=== PATIENT | female | born 1975 | race Caucasian/White ===

== ENCOUNTER 2022-07-10 05:31 | Outpatient (CLI) | payer OTHER ==
[~2022-07-10] VITALS: Ht 180.3 cm; Wt 167.3 kg
[2022-07-11] MEDS ORDERED: METF-846 PO (11:05)
[2022-07-11] MEDS ORDERED: ERGO1250 PO (11:05)
[2022-07-11] MEDS ORDERED: OMEP40CA6 PO (11:05)
[2022-07-11] MEDS ORDERED: ASPI-808 PO (11:05)
[2022-07-11] MEDS ORDERED: MAGN400C PO (11:05)
[2022-07-11] MEDS ORDERED: ALBU18HF2 INH (11:05)
[2022-07-11] MEDS ORDERED: ATEN50TA PO (11:05)
[2022-07-11] MEDS ORDERED: CALC-308 PO (11:05)
[2022-07-11] MEDS ORDERED: HYDR12.56 PO (11:05)
== END 2022-07-11 13:29 | disposition home or self-care (01) ==
LOC: PREOP 05:31
PROVIDERS: ATTEND Obstetrics & Gynecology
DX: Z01.818 Encounter for other preprocedural examination (principal)

== ENCOUNTER 2022-07-17 08:27 | Day surgery (SDC) | payer OTHER ==
[2022-07-17] VITALS (11 sets, daily range): BP systolic 107–139; BP diastolic 59–91
[~2022-07-17] VITALS: Ht 180 cm; Wt 167.3 kg
[~2022-07-17 08:27] MED LIST: ALBU18HF2 INH; ASPI-808 PO; ATEN50TA PO; CALC-308 PO; ERGO1250 PO; HYDR12.56 PO; MAGN400C PO; METF-846 PO; OMEP40CA6 PO
[2022-07-17] MEDS ORDERED: metroNIDAZOLE 500MG/100ML IVPB 100 ML IV ONE (09:00)
[2022-07-17] MEDS ORDERED: ceFAZolin INJECTION 2,000 MG in NS (IVPB) 50 ML IV ONE (09:00)
[2022-07-17 09:44] LABS: BASOPHILS % (AUTO) 0 % (0-10); EOSINOPHILS # (AUTO) 0.3 10^3/uL (0.0-0.3); EOSINOPHILS % (AUTO) 4 % (0-10); HEMATOCRIT 38 % (35-52); HEMOGLOBIN 12.7 g/dL (11.5-16.0); LYMPHOCYTES # (AUTO) 2.6 10^3/uL (1.0-4.0); LYMPHOCYTES % (AUTO) 35 % (12-44); MEAN CORPUSCULAR HEMOGLOBIN 31 pg (25-34); MEAN CORPUSCULAR HGB CONC 33 g/dL (32-36); MEAN CORPUSCULAR VOLUME 92 fL (80-99); MEAN PLATELET VOLUME 10.4 fL (9.0-12.2); MONOCYTES # (AUTO) 0.6 10^3/uL (0.0-1.0); MONOCYTES % (AUTO) 7 % (0-12); NEUTROPHILS % (AUTO) 54 % (42-75); PLATELET COUNT 181 10^3/uL (130-400); WHITE BLOOD COUNT 7.4 10^3/uL (4.3-11.0)
[2022-07-17] MEDS ORDERED: ANTACID SUSP 30 ML UDC (MYLANTA) PO PRN (09:45)
[2022-07-17] MEDS ORDERED: SIMETHICONE 80 MG (MYLICON) CHEW PO PRN (09:45)
[2022-07-17] MEDS ORDERED: CEPACOL SORE THROAT-COUGH LOZENGE MM PRN (09:45)
[2022-07-17] MEDS ORDERED: ONDANSETRON 4 MG/2 ML (SDV) Z0FRAN IV PRN (09:45)
[2022-07-17] MEDS ORDERED: ZOLPIDEM 5 MG (AMBIEN) TAB PO PRN (09:45)
[2022-07-17] MEDS ORDERED: IBUPROFEN 600 MG (MOTRIN) TAB PO PRN (09:45)
--- NOTE | 2022-07-17 09:45 | Progress Note-Pre Operative ---
Pre-Operative Progress Note Date of Available H&P: Jul 17, 2022 Date H&P Reviewed: Jul 17, 2022 Time H&P Reviewed: 09:45 History & Physical: H&P Reviewed, Patient Examed, No changes noted Pre-Operative Diagnosis: AUB, Menorrhagia, Fibroid uterus, BMI 50, Chronic b lood loss anemia DANA PAULINO DO Jul 17, 2022 09:45
--- NOTE | 2022-07-17 09:49 | Discharge Inst-Women's Service ---
Discharge Inst-Women's Serv Depart Medication/Instructions New, Converted or Re-Newed RX: Transmitted to Pharmacy Problems Reviewed?: Yes Consults/Follow Up Additional Follow Up: Yes Orders/Referrals Dr. Christy in 7-10 days and in 8 weeks Activity Activity: Activity as Tolerated Driving Instructions: No Driving for 1 Week NO SMOKING: NO SMOKING Nothing Inside Vagina: No Douching, No [place], No Tampons Diet Discharge Diet: No Restrictions Symptoms to Report to : Bleeding Excessive, Pain Increased, Fever Over 101 Degrees F, Vaginal Bleeding Increase, Questions/Concerns For Any Problems or Questions: Contact Your Physician Skin/Wound Care Infection Signs and Symptoms: Increased Redness, Foul Odor of Wound, Increased Drainage, Skin Itchy or Has a Rash, Increased Swelling, Temperature Above 101 F Operative Area Clean and Dry: Keep Incision Clean/Dry Stitches/Abimael/Dermabond: Dermabond, Care of Stitches Bathing Instructions: DANA Cunningham DO Jul 17, 2022 09:49
[2022-07-17] MEDS ORDERED: HYDR-34 PO (09:50)
[2022-07-17] MEDS ORDERED: DOCU100C37 PO (09:50)
[2022-07-17] MEDS ORDERED: SIME80TA16 PO (09:50)
[2022-07-17] MEDS ORDERED: IBUP-844 PO (09:50)
[2022-07-17] MEDS: LACTATED RINGERS 1,000 ML IV PRN ×2 (09:52→10:58)
[2022-07-17] MEDS ORDERED: LACTATED RINGERS 1,000 ML IV PRN (10:15)
[2022-07-17] MEDS ORDERED: ONDANSETRON 4 MG/2 ML (SDV) Z0FRAN IV ONE (10:15)
[2022-07-17] MEDS ORDERED: SCOPOLAMINE 1.5 MG (TRANSDERM-SCOP) PATCH TOP ONE (10:15)
[2022-07-17] MEDS ORDERED: FAMOTIDINE 20MG/2ML IV (PEPCID) IV ONE (10:15)
[2022-07-17] MEDS ORDERED: FAMOTIDINE 20MG/2ML IV (PEPCID) ONE (10:21)
[2022-07-17] MEDS ORDERED: ONDANSETRON 4 MG/2 ML (SDV) Z0FRAN ONE ×2 (10:21→11:49)
[2022-07-17] MEDS ORDERED: SCOPOLAMINE 1.5 MG (TRANSDERM-SCOP) PATCH ONE (10:22)
[2022-07-17] MEDS ORDERED: BUPIVACAINE 0.25% 30 ML (SENSORCAINE) VIAL ONE (10:30)
[2022-07-17] MEDS ORDERED: fentaNYL INJ 100 MCG/2 ML AMP ONE (10:58)
[2022-07-17] MEDS ORDERED: MIDAZOLAM 2 MG/2 ML (VERSED) VIAL ONE (10:58)
[2022-07-17] MEDS ORDERED: BUPIVACAINE 0.25% 30 ML (SENSORCAINE) VIAL INJ ONE (11:41)
[2022-07-17] MEDS ORDERED: HYDROmorphone 2 MG/ML VIAL (DILAUDID) ONE (11:46)
[2022-07-17] MEDS ORDERED: ROCURONIUM 10 MG/ML 5 ML SYRINGE IV ONE (11:49)
[2022-07-17] MEDS ORDERED: LIDOCAINE PF 2% 5 ML (XYLOCAINE) VIAL ONE (11:49)
[2022-07-17] MEDS ORDERED: proPOfol 200 MG/20 ML (DIPRIVAN) VIAL IV ONE (11:49)
[2022-07-17] MEDS ORDERED: NEOSTIGMINE (BLOXIVERZ ) 1 MG/1ML 10 ML VIAL ONE (12:19)
[2022-07-17] MEDS ORDERED: GLYCOPYRROLATE 0.2 MG/ML (ROBINUL) 2 ML VIAL ONE ×2 (12:19→12:45)
[2022-07-17] MEDS ORDERED: SEVOFLURANE (ULTANE) 15 ML INHAL SOLN ONE (12:21)
[2022-07-17] MEDS ORDERED: KETOROLAC 30 MG/ML VIAL ONE (12:26)
[2022-07-17] MEDS ORDERED: PROMETHAZINE INJ 25 MG/ML (PHENERGAN) AMP ONE (12:41)
[2022-07-17] MEDS ORDERED: morphine INJ 10 MG/ML 1ML (SYR OR VIAL) IVP ONE (12:45)
[2022-07-17] MEDS ORDERED: PROMETHAZINE INJ 25 MG/ML (PHENERGAN) AMP IVP ONE (12:45)
[2022-07-17] MEDS ORDERED: HYDROmorphone 2 MG/ML VIAL (DILAUDID) IV ONE (12:45)
[2022-07-17] MEDS ORDERED: ONDANSETRON 4 MG/2 ML (SDV) Z0FRAN IVP PRN (12:45)
[2022-07-17] MEDS: KETOROLAC 30 MG/ML VIAL IVP PRN ×2 (12:46→18:46)
--- NOTE | 2022-07-17 15:05 | Anesthesia-General Post-Op ---
General Patient Condition Nausea/Vomiting: Present Post Op Complications Complications None Follow Up Care/Instructions Patient Instructions None needed. Anesthesia/Patient Condition Patient Condition Patient is doing well, does C/O PONV which unfortunately is normal for her. She is having some pain, but it is tolerable. She has stable vital signs. RAYMOND DAHL DO Jul 17, 2022 15:05
[2022-07-17] MEDS: LACTATED RINGERS 1,000 ML IV SCH ×2 (15:09→17:57)
[2022-07-17] MEDS: HYDROcodone/APAP 7.5 MG/325 MG (LORTAB, LORCET PLUS) TABLET PO PRN (17:36)
--- NOTE | 2022-07-17 19:36 | OPERATIVE REPORT ---
DATE OF SERVICE: 07/17/2022 PREOPERATIVE DIAGNOSES: 1. A 47-year-old female with abnormal uterine bleeding. 2. Menorrhagia. 3. Fibroid uterus. 4. Chronic blood loss anemia. 5. BMI of 51. POSTOPERATIVE DIAGNOSES: 1. A 47-year-old female with abnormal uterine bleeding. 2. Menorrhagia. 3. Fibroid uterus. 4. Chronic blood loss anemia. 5. BMI of 51. PROCEDURE: Robotic-assisted total laparoscopic hysterectomy with bilateral salpingo-oophorectomy. SURGEON: Carlos Christy DO ANESTHESIOLOGIST: Krissy García DNP. ANESTHESIA: General endotracheal. ESTIMATED BLOOD LOSS: Minimal. URINE OUTPUT: 500 mL clear at the end of procedure. FLUIDS: 2400 mL of lactated Ringer solution. FINDINGS: Bulky and hyperemic appearing uterus, grossly normal-appearing bilateral fallopian tubes and ovaries. SPECIMEN SENT: Uterus, bilateral fallopian tubes and ovaries. INDICATIONS FOR PROCEDURE: This 47-year-old female with a patient who had come to my office and had exhausted more conservative measures for dealing with her heavy bleeding. She has been diagnosed with fibroid uterus in the past. She was undergoing iron replacement therapy due to chronic blood loss anemia from the amount of bleeding she has been having from her periods. I discussed with the patient the definitive measures that she wished to proceed with. Risk of the procedure were discussed with the patient in detail including risk of bleeding, infection, damage to surrounding structures including but not limited to bowel, bladder, ureter or kidney, possible need for reoperation, postoperative complications that may occur, risk from anesthesia, recovery time frame and even . I discussed the removal of her ovaries and how this will put her in menopause; however, the patient wishes to proceed with removal of her ovaries due to concerns of long-term lifetime of cancer. She understands the estrogen replacement therapy was not really an option for her. After all of her questions were answered, consent was obtained. The patient was taken to the operating room. REPORT IN DETAIL: Once in the operating room, general anesthesia was found to be adequate. She was placed in dorsal lithotomy position, prepped and draped in sterile fashion where a timeout was performed. Saavedra catheter was placed using sterile technique. A weighted speculum was inserted into the patient's vagina, right angle retractor was used to visualize the cervix, was grasped by placing a 0 Vicryl suture through the anterior lip of the cervix. Once the sutures and place, I sounded the uterine cavity depth was found to be 8 cm. I set the 8 cm BALDEV uterine manipulator tip and a 3.5 cm colpotomy ring. The manipulator tip was advanced into the uterus with the balloon was deployed. The colpotomy ring was advanced from the vaginal fornix. Excellent manipulation is appreciated at that point of the uterus and then removed all the other instruments from the patient's vagina performed. A change of gloves, turned my attention to the abdomen, where subcostally at the midclavicular line on the left anterior descending a Veress needle to ensure placement confirmed using saline drop test. Opening pressure of 4 mmHg is noted. I proceeded with CO2 gas to maximum pressure of 15 mmHg, at which point I made an 8 mm supraumbilical incision with a knife and direct a blunt laparoscopic da Tania camera trocar through this incision. Placement was confirmed using the da Tania laparoscope. There was no evidence of damage from the entry site. A brief scan of the upper abdominal anatomy appears to be grossly normal and the Veress needle was removed under direct visualization of laparoscope. There was no evidence of damage upon the Veress entry either. I then the patient was placed in steep Trendelenburg and we were able to visualize all mapped pelvic anatomy as defined in my findings above. I placed 2 lateral trocars. These were both 8 mm trocar was placed approximately 8 cm lateral to the infraumbilical trocar. Once both of the trocars were in place and visualized, I have again the da Tania robot docked in the appropriate fashion, placing the vessel sealer in the left hand, monopolar lupillo in the right hand. I performed the following dissection bilaterally using the da Tania operative console. Starting at the infundibulopelvic ligament, I sealed and transected this using the single set of sealed and transected using the vessel sealer device. I then grasped the round ligament, which was sealed and transected using the vessel sealer device. I then grasped the entire broad ligament, which was sealed and transected using the vessel sealer down to the level of the lower uterine segment, at which point I the anterior and posterior leaves of the broad ligament anterior leaf was taken down the anterior vaginal fornix posteriorly was taken to the posterior vaginal fornix. This allowed me to skeletonize the uterine vessels, which I sealed and transected using the vessel sealer device. I then created a colpotomy at 12 o'clock position using monopolar lupillo and take circumferentially around the vaginal fornix amputating the cervix away from the vagina and the entire specimen was then removed through the vagina. I then closed the vaginal cuff using 2-0 V-Loc in a running fashion, after which was noted to be in the operating room and dissection planes were then undocked through the da Tania robot and proceeded with the remainder of the case laparoscopically. I copiously irrigated the pelvis with normal saline. Once again, there was noted to be no from any dissection planes. I placed Surgiflo hemostatic agent. Overall, my planes of dissection. I then the patient was taken out of steep Trendelenburg. We removed the lateral trocars under direct visualization, laparoscope. The infraumbilical trocar was left in place to release the remainder of the insufflation and introduced 10 mL 0.25% Marcaine peritoneal cavity for postoperative pain management. I then removed this trocar as well. The skin was reapproximated using 4-0 Monocryl interrupted subcuticular stitches. Dermabond was applied and incisions and Band-Aids were placed over these as well. Saavedra catheter was left in place. The patient tolerated the procedure well and was taken to recovery in stable condition. Lap and sponge counts were correct at the end of the procedure. Instrument counts were correct as well. Job ID: [id number] DocumentID: [id number] Dictated Date: 07/17/2022 12:54:32 Site Reliability Engineer Date: 07/17/2022 19:34:00 Dictated By: DO LUIS ALBERTO HOWE
[2022-07-17] MEDS: DOCUSATE SODIUM 100 MG (COLACE) CAP PO PRN (21:15)
[2022-07-18] VITALS: BP 115/59
[2022-07-18] MEDS: LACTATED RINGERS 1,000 ML IV SCH (00:26)
[2022-07-18] MEDS: KETOROLAC 30 MG/ML VIAL IVP PRN ×2 (00:33→06:33)
[2022-07-18 04:00] VITALS: BP 109/59
[2022-07-18 08:15] VITALS: BP 111/61
[2022-07-18] MEDS: DOCUSATE SODIUM 100 MG (COLACE) CAP PO PRN (08:27)
[2022-07-18] MEDS: HYDROcodone/APAP 7.5 MG/325 MG (LORTAB, LORCET PLUS) TABLET PO PRN (08:28)
[2022-07-18 11:31] VITALS: BP 111/61
== END 2022-07-18 11:15 | disposition home or self-care (01) ==
LOC: SDC 08:27 → WS 13:37 → SDC 07-18 11:15
PROVIDERS: ATTEND Obstetrics & Gynecology
DX: D25.0 Submucous leiomyoma of uterus (principal); N72 Inflammatory disease of cervix uteri; N88.8 Other specified noninflammatory disorders of cervix uteri; N94.89 Other specified conditions associated with female genital organs and menstrual cycle; N83.8 Other noninflammatory disorders of ovary, fallopian tube and broad ligament; N83.292 Other ovarian cyst, left side; N83.291 Other ovarian cyst, right side; D50.0 Iron deficiency anemia secondary to blood loss (chronic); G47.33 Obstructive sleep apnea (adult) (pediatric); E66.01 Morbid (severe) obesity due to excess calories; Z68.43 Body mass index [BMI] 50.0-59.9, adult
CPT/HCPCS: 36415; 82947; 84703; 85025; 86850; 86900; 86901; 87081; 94664